=== PATIENT | male | born 1950 | race Caucasian/White ===

== ENCOUNTER → 2018-05-24 | Outpatient (CLI) | payer MEDICARE ==
[~2018-05-24] MED LIST: BUPIVACAINE MPF 0.25% 10 ML VIAL. ONE; IOHEXOL 180 MG/ML 10 ML VIAL. ONE; methylPREDNISolone ACETATE 80 MG/ML VIAL. ONE
--- NOTE | 2018-05-24 20:41 | PAIN ---
DATE OF SERVICE: 05/24/2018 PROGRESS NOTE FOR PAIN CLINIC DIAGNOSIS: Right shoulder joint pain with biceps tendinitis. HISTORY OF PRESENT ILLNESS: The patient is a 67-year-old male who returns for followup with complaints of right shoulder pain for about 3 weeks now. The patient has been increasing his activity with bow hunting with difficulty pulling the bow back with weight, also with throwing football around with his son, which seemed to aggravate his shoulder pain as well. The patient reports that the anterior aspect of his shoulder, significant pain with biceps flexion and weightbearing trying to use of the arm in repetitive motions and with especially pulling back the string of his hunting bow. The patient reports it awakens him from sleep at night if he lies on his right side. No motor or sensory deficits but significant pain involved with motion of the biceps tendon on the right side. The patient reports the pain is a 5-6 on a scale of 10 at its worst, 0 at its least, 2-3 on his average and is a 3 today. The patient reports no new motor or sensory deficits and no new changes. PHYSICAL EXAMINATION: VITAL SIGNS: The patient's blood pressure 130/93, pulse 60, respirations 16 and temperature 97.7 degrees Fahrenheit. Height is 5 feet 10 inches and weight is 181 pounds. GENERAL: The patient is awake, alert, oriented, appropriate and very pleasant demeanor. HEENT: Head shows normocephalic and atraumatic. Extraocular movements are intact and symmetrical. Oral cavity: Mucous membranes moist and pink. Dentition is intact. NECK: Shows anterior throat supple without palpable lymphadenopathy noted. Swallow reflex symmetrical. CHEST: Shows normal with inspection. Breath sounds clear to auscultation bilaterally. HEART: Shows S1 and S2 clear. No murmurs auscultated. ABDOMEN: Soft, nontender and nondistended. No palpable organomegaly is noted. No rebound or guarding demonstrated. BACK: Shows spine grossly in the midline. Normal-appearing thoracic kyphosis and lumbar lordotic curvature. The patient's upper extremities show significant tenderness with palpation of the anterior aspect of the right shoulder and deltoid especially in the biceps groove, which is extremely tender with palpation, nontender on the left side. The patient shows good rotational motion over the shoulders bilaterally with extension, flexion as well as lateral abduction and resistance without difficulty with biceps flexion, so significant pain with resistance on the right side only and left side is nontender. Peripheral pulses are 2+ radial distribution. No peripheral edema is noted. Options were discussed with the patient. The patient's old chart was reviewed as well as his current medication regimen updated. Current review of systems updated today as well. We will proceed with a right-sided biceps tendon sheath injection today with fluoroscopic guidance. Risks were again discussed including, but not limited to bleeding, infection, possibility of intravascular injection sequelae, spread of local anesthetic and numbness, side effects of steroid medication, exposure to fluoroscopy and poor results regarding pain control. The patient understands and wished to proceed. The patient will return to the clinic in approximately 2 weeks for followup, was counseled as to return appointment, activity level and side effects to be aware of. DIAGNOSIS: Right shoulder pain with biceps tendinitis. PROCEDURE: Right biceps tendon sheath injection using C-arm fluoroscopic guidance under sterile prep and drape using local anesthetic. MEDICATION INJECTED: A total of 3 mL of 0.25% bupivacaine and 80 mg Depo-Medrol and 1.5 mL of Isovue for contrast. CONDITION AT DISCHARGE: Stable. The patient tolerated the procedure well and had no complications. FREDDIE BARAJAS MD DR: ABDULAZIZ/maddison JOB#: [id number] / [id number]
== END | disposition home or self-care (01) ==
LOC: PNCL 13:01
PROVIDERS: ATTEND Anesthesiology
DX: M75.21 Bicipital tendinitis, right shoulder (principal); Z98.890 Other specified postprocedural states; Z79.899 Other long term (current) drug therapy
CPT/HCPCS: 20551; 77002; J1040; J3490; Q9965

== ENCOUNTER → 2018-08-10 | Outpatient (CLI) | payer MEDICARE ==
[~2018-08-10] MED LIST changes: -BUPIVACAINE MPF 0.25% 10 ML VIAL. ONE; +IOHEXOL 180 MG/ML 10 ML VIAL. INT ART ONE; -IOHEXOL 180 MG/ML 10 ML VIAL. ONE; +LIDOCAINE 1% Multi-Dose 20 ML VIAL. ID ONE; -methylPREDNISolone ACETATE 80 MG/ML VIAL. ONE
--- NOTE | 2018-08-10 12:37 | KCIC ---
CT arthrogram of the right shoulder Indication: Right shoulder pain, limited range of motion with abduction. Exposure: One or more of the following individualized dose reduction techniques were utilized for this examination: 1. Automated exposure control 2. Adjustment of the mA and/or kV according to patient size 3. Use of iterative reconstruction technique. Comparison: None are available. TECHNIQUE: Intra-articular contrast injected prior to the scan. The standard multiplanar reconstructions are obtained. FINDINGS: Acromioclavicular joint is mildly degenerative, with small undersurface osteophytes. The undersurface of the supraspinatus and infraspinatus are intact. No abnormal contrast accumulation identified within the rotator cuff tissue or the subdeltoid bursa. Linear contrast signal within the superior labrum. This demonstrates a smooth contour which courses medially and measures 1 mm in thickness, findings which are typically associated with a normal sublabral recess, rather than a SLAP tear. Note that this does extend posterior to the anchor, but that is a less specific finding. Glenohumeral articular cartilage is intact. The biceps tendon demonstrates slight medial subluxation at the upper lesser tuberosity. No evidence of acute fracture or bone destruction. No significant soft tissue abnormality. The partially visualized right upper lung is grossly clear. IMPRESSION: 1. No evidence of supraspinatus-infraspinatus tendon tear. 2. Slight medial subluxation of the biceps tendon at the upper bicipital groove. This can indicate subscapularis tendon tear, but direct evaluation of this tendon is limited on CT arthrography. 3. Smooth linear contrast defect at the base of the superior labrum. Overall characteristics favor a normal sublabral recess, rather than SLAP tear. Electronically signed by: Juan Bhagat MD (08/10/2018 12:33 PM) [id number]
--- NOTE | 2018-08-10 14:37 | KCIC ---
Right shoulder contrast injection using fluoroscopic guidance prior to CT History: Chronic right shoulder pain. Technique: The procedure and associated risks, including infection, bleeding or allergic reaction, were explained to the patient. Informed written consent was obtained. Time-out procedure was performed. The anterior shoulder was prepped and draped in usual sterile manner. Local anesthetic was obtained with lidocaine. A 22 gauge needle was advanced without difficulty into the glenohumeral joint. After negative aspiration, a mixture of 15 cc Omnipaque 180 contrast and 5 cc 1 percent lidocaine mixture was injected without difficulty, to a total volume of 12 cc. Needle was removed. Patient tolerated the procedure well without immediate complication and left in stable condition. Fluoroscopy time: ?20 seconds A single image was obtained. Electronically signed by: Juan Bhagat MD (08/10/2018 2:31 PM) [id number]
== END | disposition home or self-care (01) ==
LOC: KCIC 10:45
PROVIDERS: ATTEND Orthopaedic Surgery Sports Medicine
DX: S43.081A Other subluxation of right shoulder joint, initial encounter (principal); M19.011 Primary osteoarthritis, right shoulder; M75.101 Unspecified rotator cuff tear or rupture of right shoulder, not specified as traumatic; G89.29 Other chronic pain; X58.XXXA Exposure to other specified factors, initial encounter; Y93.89 Activity, other specified; Y92.89 Other specified places as the place of occurrence of the external cause; Y99.8 Other external cause status
CPT/HCPCS: 73040; 73201; Q9965

== ENCOUNTER → 2019-05-08 | Outpatient (CLI) | payer MEDICARE ==
[2019-05-08 15:25] LABS: BASO % 1 % (0-3); EOS # 0.1 x10^3/uL (0.0-0.7); EOS % 2 % (0-3); HEMATOCRIT 42.9 % (39.0-53.0); HEMOGLOBIN 14.5 g/dL (13.0-17.5); LYMPH # 1.2 x10^3/uL (1.0-4.8); LYMPH % 23 % (24-48); MEAN CORPUSCULAR HEMOGLOBIN 32 pg (25-35); MEAN CORPUSCULAR HGB CONC 34 g/dL (31-37); MEAN CORPUSCULAR VOLUME 94 fL (79-100); MONO # 0.5 x10^3/uL (0.0-1.1); MONO % 9 % (0-9); NEUT # 3.5 x10^3/uL (1.8-7.7); NEUT % 65 % (31-73); PLATELET COUNT 143 x10^3/uL (140-400); RED BLOOD COUNT 4.55 x10^6/uL (4.30-5.70); WHITE BLOOD COUNT 5.4 x10^3/uL (4.0-11.0)
[2019-05-08 15:46] LABS: CALCIUM 8.9 mg/dL (8.5-10.1); CREATININE 1.2 mg/dL (0.7-1.3); GFR 60.4
== END | disposition home or self-care (01) ==
LOC: LAB 13:08
PROVIDERS: ATTEND Internal Medicine Interventional Cardiology
DX: Z01.812 Encounter for preprocedural laboratory examination (principal); I10 Essential (primary) hypertension
CPT/HCPCS: 36415; 80048; 85025